=== PATIENT | female | born 1980 | race Caucasian/White ===

== ENCOUNTER 2021-07-24 19:13 | Emergency (ER) | payer SELFPAY ==
[2021-07-24] MEDS ORDERED: predniSONE 20 MG TAB ONE (19:55)
[2021-07-25 14:59] LABS: SARS-CoV-2 PCR by NAA Not Detected (NotDetected)
== END 2021-07-24 20:05 | disposition home or self-care (01) ==
LOC: NAV ERS 19:13
DX: J06.9 Acute upper respiratory infection, unspecified (principal); J40 Bronchitis, not specified as acute or chronic; Z20.822 Contact with and (suspected) exposure to COVID-19
CPT/HCPCS: 87804; 99284; J7512; U0003; U0005

== ENCOUNTER 2021-08-05 00:13 | Emergency (ER) | payer SELFPAY ==
[2021-08-05] MEDS ORDERED: Benzonatate 100 MG CAP ONE (00:37)
[2021-08-05] MEDS ORDERED: Azithromycin 250 MG TAB ONE (00:37)
== END 2021-08-05 00:45 | disposition home or self-care (01) ==
LOC: NAV ERS 00:13
DX: J20.9 Acute bronchitis, unspecified (principal); F17.210 Nicotine dependence, cigarettes, uncomplicated; Z79.899 Other long term (current) drug therapy
CPT/HCPCS: 99283